=== PATIENT | male | born 2005 | race Caucasian/White ===

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

== ENCOUNTER 2025-06-07 08:07 | Emergency (ER) | payer OTHER, SELFPAY ==
--- OUTSIDE RECORDS SUMMARY | 2025-06-07 08:10 | XMS_ITS | Clinical Summary ---
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 Role Phone Unavailable Primary Care Provider Unavailabl e Social History Tobacco Use Types Packs/Day Years Used Date Smoking Tobacco: Never Assessed Sex and Gender Information Value Date Recorded Sex Assigned at Not on file Legal Sex Male 7:05 PM CDT Gender Identity Not on file Sexual Orientation Not on file Plan of Treatment Health Maintenance Due Date Last Done Comments Annual Physical 2006 HPV Vaccines (1 - Male 3-dos e series) 2018 Meningococcal B Vaccine (1 o f 2 - Standard) 2019 Hepatitis C 2021 DTaP, Tdap and Td Vaccines ( 1 - Tdap) 2022 Hepatitis B Vaccines (1 of 3 - 19+ 3-dose series) 2022 COVID-19 Vaccine (1 - 2023-2 5 season) 2024 Meningococcal Vaccine Aged Out No lynne noel eligible based on patient's age to complete this topic Pneumococcal Vaccine: Pediat rics (0 to 5 Years) and At-Risk Patients (6 to 49 Years) Aged Out No longer eligible b ased on patient's age to complete this topic RSV Immunizations Under 20 Months Aged Out No longer eligible based on patient's age to complete this topic
--- NOTE | 2025-06-07 08:15 | ED_ITS ---
HPI - Skin/Abscess/Foreign Bdy General Chief complaint: Skin/Abscess/Foreign Body Stated complaint: Insect Bite Time Seen by Provider: 06/07/25 08:21 Source: patient and RN notes reviewed Mode of arrival: ambulatory Limitations: no limitations History of Present Illness HPI narrative: 20-year-old male presents with concern for rash after removing 15 takes from his body. Reports on Friday he was clearing brush and he removed 15 takes. Reports the next day he noticed red bumps where the tick bites were, he now has multiple red bumps on his body where he did not have take bites. Reports they are itchy. He has been taking Benadryl and using Benadryl cream. He denies fever, body aches, chills, sweats, joint pain, bulls eye rash. MD complaint: insect bite/sting Related Data Allergies Allergy/AdvReac Type Severity Reaction Status Date / Time No Known Allergies Allergy Verified 06/07/25 08:23 Review of Systems Review of Systems: CONSTITUTIONAL: Denies malaise, chills, sweats, or fever. EYES: Denies redness, or discharge. ENT: Denies rhinorrhea, congestion, swollen lips, swollen tongue CARDIOVASCULAR: Denies chest pain, palpitations, or edema. RESPIRATORY: Denies cough or dyspnea. GASTROINTESTINAL: Denies abdominal pain, nausea, vomiting SKIN: Reports itchy rash an inflamed tick bite site MUSCULOSKELETAL: Denies joint pain or myalgia. NEUROLOGIC: Denies headache. All systems reviewed & are unremarkable except as noted in HPI and below PMFSH Past Medical History Medical History No pertinent past medical history Surgical History Surgical History History of wisdom tooth extraction Social History Social History Smoking status: Never smoker Comments At time of signature, agree with nursing past medical, surgical, social and family history. There is no relevant family history pertinent to the presenting complaint Exam Narrative: GENERAL: Well-appearing, well-nourished, and in no acute distress. HEAD: Normocephalic, atraumatic. EYES: PERRLA, conjunctivae clear, and EOMI. ENT: Mucous membranes moist. Oropharynx without edema, erythema or lesions. NECK: Supple. No lymphadenopathy CHEST: Clear to auscultation. No respiratory distress. HEART: Regular rate and rhythm. SKIN: Warm, dry. Multiple Discrete erythematous papules noted to the back, chest, legs. No bull's eye rash noted NEURO: Alert and oriented x3. PSYCH: Normal mood and affect Course Course Emergency Course: Patient is aware of diagnosis, understands and agrees to treatment plan. Anticipatory guidance given. Patient agrees to follow-up as directed and is aware of reasons to seek care at the emergency department. Portions of this record may have been created with voice recognition software Level of Care: Express Care Visit Vital Signs Vital signs: Reviewed. MDM - Skin/Abscess/Foreign Bdy MDM Narrative Medical decision making narrative: Does not appear at this time to be erythema multiforme, bullous, SJS, TEN; no evidence at this time to suggest RMSF, endocarditis or Lyme disease; patient looks well, nontoxic and is tolerating oral intake; no neurologic signs or symptoms; no headache, photophobia or neck pain; afebrile; appropriate for initial outpatient treatment; discussed the importance of follow-up, patient agrees; question, viral exanthema, contact dermatitis, allergic dermatitis, eczema, urticaria, papular urticaria. No soft palate or uvula edema, no tongue, lip edema or other mucosal involvement, no respiratory compromise, no stridor, no wheezing, no wheezing, no history of syncope, no hypotension, no nausea, vomiting, or diarrhea. Patient is having no systemic symptoms, no fever, body aches, chills, sweats, joint pain, headache. Instructed patient to go to nearest ER immediately for any worsening symptoms including but not limited to: fever, spreading rash, pain, sore throat, headache, dizziness, chest pain, trouble breathing, or any symptoms concerning to the patient. Critical Care Time Critical Care Time Critical Care Time: No Discharge Plan Discharge Clinical Impression: Tick bite, Papular urticaria Patient Disposition: Home Condition: Stable Instructions: Antibiotic Form, Tick Bite (ED) Additional Instructions: Papular urticaria is the most likely reason for your rash. This can be a hypersensitivity reaction to the multiple tick bites you sustained. Continue to use antihistamines such as Benadryl every 6 hours and zyrtec every 24 hours. We will prescribe post-exposure prophylaxis for your tick bites in case the ticks were carrying any tick-born illness. Please take as directed. Please follow-up with your primary care provider if you have any bulls eye rash, fever, body aches, or generally feeling unwell. Patient Language: [place] Prescriptions: New doxycycline monohydrate 100 mg tablet 200 mg PO ONCE 1 Days Qty: 2 0RF Follow-up/Referrals: Timoteo Rodriguez MD [Primary Care Provider] - Time of Disposition: 08:39
[2025-06-07 08:21] VITALS: BP 124/84; PULSE 83; RESP 16; TEMP 36.6; O2SAT 100
== END 2025-06-07 08:51 | disposition home or self-care (01) ==
PROVIDERS: Emergency Provider Nurse Practitioner; PCP Family Medicine
DX: S20.469A Insect bite (nonvenomous) of unspecified back wall of thorax, initial encounter (principal); S20.369A Insect bite (nonvenomous) of unspecified front wall of thorax, initial encounter; S80.862A Insect bite (nonvenomous), left lower leg, initial encounter; S80.861A Insect bite (nonvenomous), right lower leg, initial encounter; W57.XXXA Bitten or stung by nonvenomous insect and other nonvenomous arthropods, initial encounter; L50.8 Other urticaria
CPT/HCPCS: 99213; G0463